=== PATIENT | female | born 1940 | race Caucasian/White ===

== ENCOUNTER → 2016-03-09 | Outpatient (CLI) | payer MEDICARE, BC | LOC: LAB 09:03 | DX: R30.0 Dysuria (principal); N76.0 Acute vaginitis | CPT/HCPCS: Q0111 ==

== ENCOUNTER → 2016-11-27 | Outpatient (CLI) | payer MEDICARE, BC | LOC: LAB 08:43 | DX: I10 Essential (primary) hypertension (principal); Z13.220 Encounter for screening for lipoid disorders; F41.1 Generalized anxiety disorder; Z00.00 Encounter for general adult medical examination without abnormal findings ==

== ENCOUNTER → 2016-12-03 | Outpatient (CLI) | payer MEDICARE, BC | LOC: LAB 09:29 | DX: R71.8 Other abnormality of red blood cells (principal); L65.9 Nonscarring hair loss, unspecified; I10 Essential (primary) hypertension; D72.821 Monocytosis (symptomatic) ==

== ENCOUNTER → 2016-12-11 | Outpatient (CLI) | payer MEDICARE, BC ==
[2016-12-11 09:22] LABS: PH-URINE 6.5 (5.0 - 8.0); URINE APPEARANCE CLEAR; URINE BILIRUBIN NEGATIVE (NEGATIVE); URINE BLOOD TRACE (NEGATIVE); URINE COLOR YELLOW; URINE GLUCOSE NEGATIVE (NEGATIVE); URINE KETONE NEGATIVE (NEGATIVE); URINE LEUKOCYTE ESTERASE NEGATIVE (NEGATIVE); URINE MUCUS PRESENT (NOT PRESENT); URINE NITRATE NEGATIVE (NEGATIVE); URINE PROTEIN(semi-quant) TRACE mg/dL (NEGATIVE); URINE UROBILINOGEN NORMAL (NORMAL)
== END ==
LOC: LAB 08:52
PROVIDERS: Nurse Practitioner Family
DX: R35.0 Frequency of micturition (principal); R31.1 Benign essential microscopic hematuria; R30.0 Dysuria

== ENCOUNTER → 2017-05-06 | Outpatient (CLI) | payer MEDICARE, BC | LOC: LAB 11:32 | DX: M79.1 Myalgia (principal); R20.2 Paresthesia of skin; M79.644 Pain in right finger(s); M47.812 Spondylosis without myelopathy or radiculopathy, cervical region; R93.7 Abnormal findings on diagnostic imaging of other parts of musculoskeletal system ==

== ENCOUNTER → 2017-07-31 | Outpatient (CLI) | payer MEDICARE, BC | LOC: RAD 08:45 | DX: M79.644 Pain in right finger(s) (principal) ==

== ENCOUNTER → 2017-12-02 | Outpatient (CLI) | payer MEDICARE, BC ==
[2017-12-02 11:06] LABS: ALBUMIN 4.4 g/dL (3.5-5.0); CALCIUM 9.3 mg/dL (8.4-10.2); POTASSIUM 3.8 mmol/L (3.6-5.0); TOTAL BILIRUBIN 0.4 mg/dL (0.2-1.3); TOTAL PROTEIN 7.5 g/dL (6.3-8.2)
[2017-12-02 11:10] LABS: HEMATOCRIT 39.4 % (37.0-47.0); HEMOGLOBIN 12.9 g/dL (12.5-16.0); MEAN CELL VOLUME 101 fl (78-100); MEAN CORPUSCULAR HEMOGLOBIN 33 pg (27-31); MEAN CORPUSCULAR HGB CONC 33 g/dL (33-37); MEAN PLATELET VOLUME 9.7 fl (7.4-10.4); PLATELET COUNT 482 K/mm3 (130-400); RED BLOOD COUNT 3.91 M/mm3 (4.10-5.30); WHITE BLOOD COUNT 5.4 K/mm3 (4.8-10.8)
[2017-12-02 11:58] LABS: LYMPHOCYTE 30 % (20-51); MONOCYTE 17 % (3-10); NEUTROPHILS 52 % (42-75)
== END ==
LOC: LAB 09:54
PROVIDERS: Internal Medicine
DX: D72.819 Decreased white blood cell count, unspecified (principal)

== ENCOUNTER → 2017-12-04 | Outpatient (CLI) | payer MEDICARE, BC | LOC: RAD 07:53 | DX: C92.10 Chronic myeloid leukemia, BCR/ABL-positive, not having achieved remission (principal); R10.12 Left upper quadrant pain ==

== ENCOUNTER → 2017-12-16 | Outpatient (CLI) | payer MEDICARE, BC | LOC: RAD 08:49 | DX: R10.12 Left upper quadrant pain (principal); R10.2 Pelvic and perineal pain; Z85.6 Personal history of leukemia | CPT/HCPCS: Q9967 ==

== ENCOUNTER → 2018-01-24 | Outpatient (CLI) | payer MEDICARE, BC | LOC: CARDREHAB 07:46 → CARDLAB 09:06 | DX: R07.9 Chest pain, unspecified (principal); R06.02 Shortness of breath; Z86.79 Personal history of other diseases of the circulatory system; Z82.49 Family history of ischemic heart disease and other diseases of the circulatory system | CPT/HCPCS: A9500 ==

== ENCOUNTER → 2018-01-30 | Outpatient (CLI) | payer MEDICARE, BC | LOC: RAD 16:39 | DX: I35.1 Nonrheumatic aortic (valve) insufficiency (principal); I51.89 Other ill-defined heart diseases ==

== ENCOUNTER → 2018-03-05 | Outpatient (CLI) | payer MEDICARE, BC ==
[2018-03-05 10:16] LABS: ALBUMIN 4.6 g/dL (3.5-5.0); CALCIUM 9.5 mg/dL (8.4-10.2); POTASSIUM 3.4 mmol/L (3.6-5.0); TOTAL BILIRUBIN 0.6 mg/dL (0.2-1.3); TOTAL PROTEIN 7.6 g/dL (6.3-8.2)
[2018-03-05 10:18] LABS: HEMATOCRIT 39.8 % (37.0-47.0); HEMOGLOBIN 13.1 g/dL (12.5-16.0); MEAN CELL VOLUME 100 fl (78-100); MEAN CORPUSCULAR HEMOGLOBIN 33 pg (27-31); MEAN CORPUSCULAR HGB CONC 33 g/dL (33-37); PLATELET COUNT 82 K/mm3 (130-400); RED BLOOD COUNT 3.97 M/mm3 (4.10-5.30); RED CELL DISTRIBUTION WIDTH 12.8 % (11.5-14.5); WHITE BLOOD COUNT 4.2 K/mm3 (4.8-10.8)
[2018-03-05 10:50] LABS: LYMPHOCYTE 34 % (20-51); MONOCYTE 36 % (3-10); NEUTROPHILS 25 % (42-75)
== END ==
LOC: LAB 09:51
PROVIDERS: Internal Medicine
DX: Z01.419 Encounter for gynecological examination (general) (routine) without abnormal findings (principal); C93.10 Chronic myelomonocytic leukemia not having achieved remission; E78.00 Pure hypercholesterolemia, unspecified; E55.9 Vitamin D deficiency, unspecified

== ENCOUNTER → 2018-04-30 | Outpatient (CLI) | payer MEDICARE, BC | LOC: RAD 10:07 | DX: M79.642 Pain in left hand (principal) ==

== ENCOUNTER → 2018-05-22 | Outpatient (CLI) | payer MEDICARE, BC | LOC: RAD 11:25 | DX: C93.10 Chronic myelomonocytic leukemia not having achieved remission (principal) ==

== ENCOUNTER → 2018-06-16 | Outpatient (CLI) | payer MEDICARE, BC ==
[2018-06-16 13:38] LABS: ALBUMIN 4.2 g/dL (3.5-5.0); CALCIUM 9.7 mg/dL (8.4-10.2); POTASSIUM 3.6 mmol/L (3.6-5.0); TOTAL BILIRUBIN 0.4 mg/dL (0.2-1.3)
[2018-06-16 13:48] LABS: HEMATOCRIT 36.3 % (37.0-47.0); HEMOGLOBIN 11.5 g/dL (12.5-16.0); MEAN CELL VOLUME 101 fl (78-100); MEAN CORPUSCULAR HEMOGLOBIN 32 pg (27-31); MEAN CORPUSCULAR HGB CONC 32 g/dL (33-37); MEAN PLATELET VOLUME 11.4 fl (7.4-10.4); PLATELET COUNT 109 K/mm3 (130-400); RED BLOOD COUNT 3.61 M/mm3 (4.10-5.30); RED CELL DISTRIBUTION WIDTH 13.2 % (11.5-14.5); WHITE BLOOD COUNT 5.1 K/mm3 (4.8-10.8)
[2018-06-16 16:10] LABS: LYMPHOCYTE 33 % (20-51); MONOCYTE 26 % (3-10); NEUTROPHILS 41 % (42-75)
== END ==
LOC: LAB 13:08
PROVIDERS: Family Medicine
DX: C93.10 Chronic myelomonocytic leukemia not having achieved remission (principal)

== ENCOUNTER → 2018-09-09 | Outpatient (CLI) | payer MEDICARE, BC ==
[2018-09-09 17:04] LABS: HEMATOCRIT 37.2 % (37.0-47.0); HEMOGLOBIN 11.8 g/dL (12.5-16.0); MEAN CELL VOLUME 99 fl (78-100); MEAN CORPUSCULAR HEMOGLOBIN 31 pg (27-31); MEAN CORPUSCULAR HGB CONC 32 g/dL (33-37); PLATELET COUNT 338 K/mm3 (130-400); RED BLOOD COUNT 3.77 M/mm3 (4.10-5.30); RED CELL DISTRIBUTION WIDTH 13.5 % (11.5-14.5); WHITE BLOOD COUNT 5.3 K/mm3 (4.8-10.8)
[2018-09-09 22:05] LABS: ALBUMIN 4.3 g/dL (3.4-4.8)
[2018-09-09 22:06] LABS: POTASSIUM 3.9 mmol/L (3.5-5.1)
[2018-09-09 22:07] LABS: CALCIUM 9.3 mg/dL (8.3-10.5)
[2018-09-09 22:08] LABS: TOTAL PROTEIN 6.5 g/dL (6.2-8.1)
[2018-09-09 22:10] LABS: TOTAL BILIRUBIN 0.3 mg/dL (0.2-1.2)
[2018-09-09 22:30] LABS: LYMPHOCYTE 27 % (20-51); MONOCYTE 32 % (3-10); NEUTROPHILS 40 % (42-75)
== END ==
LOC: LAB 16:21
PROVIDERS: Internal Medicine
DX: C93.10 Chronic myelomonocytic leukemia not having achieved remission (principal)

== ENCOUNTER → 2018-09-22 | Outpatient (CLI) | payer MEDICARE, BC | LOC: VAS 09:10 | DX: R55 Syncope and collapse (principal) ==

== ENCOUNTER → 2018-10-29 | Outpatient (CLI) | payer MEDICARE, BC | LOC: RAD 09:08 | DX: M79.644 Pain in right finger(s) (principal) ==

== ENCOUNTER → 2018-12-12 | Outpatient (CLI) | payer MEDICARE, BC ==
[2018-12-12 16:45] LABS: HEMATOCRIT 37.4 % (37.0-47.0); HEMOGLOBIN 12.3 g/dL (12.5-16.0); MEAN CELL VOLUME 97 fl (78-100); MEAN CORPUSCULAR HEMOGLOBIN 32 pg (27-31); MEAN CORPUSCULAR HGB CONC 33 g/dL (33-37); MEAN PLATELET VOLUME 10.6 fl (7.4-10.4); PLATELET COUNT 124 K/mm3 (130-400); RED BLOOD COUNT 3.87 M/mm3 (4.10-5.30); WHITE BLOOD COUNT 5.4 K/mm3 (4.8-10.8)
[2018-12-12 16:49] LABS: POTASSIUM 3.2 mmol/L (3.5-5.1)
[2018-12-12 16:50] LABS: CALCIUM 9.7 mg/dL (8.3-10.5)
[2018-12-12 16:51] LABS: TOTAL PROTEIN 7.3 g/dL (6.2-8.1)
[2018-12-12 16:53] LABS: TOTAL BILIRUBIN 0.3 mg/dL (0.2-1.2)
[2018-12-12 16:55] LABS: NEUTROPHILS 25 % (42-75)
[2018-12-12 16:56] LABS: LYMPHOCYTE 28 % (20-51); MONOCYTE 44 % (3-10)
== END ==
LOC: LAB 16:16
PROVIDERS: Internal Medicine
DX: C93.10 Chronic myelomonocytic leukemia not having achieved remission (principal)

== ENCOUNTER → 2019-04-06 | Outpatient (CLI) | payer MEDICARE, BC ==
[2019-04-06 16:13] LABS: MEAN CELL VOLUME 103 fl (78-100); MEAN CORPUSCULAR HEMOGLOBIN 33 pg (27-31); MEAN CORPUSCULAR HGB CONC 32 g/dL (33-37); MEAN PLATELET VOLUME 10.4 fl (7.4-10.4); PLATELET COUNT 204 K/mm3 (130-400); RED BLOOD COUNT 3.68 M/mm3 (4.10-5.30); WHITE BLOOD COUNT 5.7 K/mm3 (4.8-10.8)
[2019-04-06 16:22] LABS: ALBUMIN 4.4 g/dL (3.4-4.8)
[2019-04-06 16:23] LABS: POTASSIUM 3.8 mmol/L (3.5-5.1)
[2019-04-06 16:24] LABS: CALCIUM 9.3 mg/dL (8.3-10.5)
[2019-04-06 16:25] LABS: TOTAL PROTEIN 7.4 g/dL (6.2-8.1)
[2019-04-06 16:27] LABS: TOTAL BILIRUBIN 0.2 mg/dL (0.2-1.2)
[2019-04-06 16:28] LABS: LYMPHOCYTE 27 % (20-51); MONOCYTE 34 % (3-10); NEUTROPHILS 30 % (42-75)
== END ==
LOC: LAB 16:01
PROVIDERS: Internal Medicine
DX: C93.10 Chronic myelomonocytic leukemia not having achieved remission (principal)

== ENCOUNTER → 2019-07-08 | Outpatient (CLI) | payer MEDICARE, BC ==
[2019-07-08 15:56] LABS: HEMATOCRIT 38.1 % (37.0-47.0); HEMOGLOBIN 12.3 g/dL (12.5-16.0); MEAN CELL VOLUME 101 fl (78-100); MEAN CORPUSCULAR HEMOGLOBIN 33 pg (27-31); MEAN CORPUSCULAR HGB CONC 32 g/dL (33-37); MEAN PLATELET VOLUME 11.1 fl (7.4-10.4); PLATELET COUNT 134 K/mm3 (130-400); RED BLOOD COUNT 3.76 M/mm3 (4.10-5.30); RED CELL DISTRIBUTION WIDTH 13.1 % (11.5-14.5); WHITE BLOOD COUNT 4.8 K/mm3 (4.8-10.8)
[2019-07-08 16:24] LABS: ALBUMIN 4.5 g/dL (3.4-4.8); POTASSIUM 3.6 mmol/L (3.5-5.1)
[2019-07-08 16:25] LABS: CALCIUM 9.6 mg/dL (8.3-10.5)
[2019-07-08 16:26] LABS: TOTAL PROTEIN 7.1 g/dL (6.2-8.1)
[2019-07-08 16:28] LABS: TOTAL BILIRUBIN 0.4 mg/dL (0.2-1.2)
[2019-07-08 18:19] LABS: LYMPHOCYTE 37 % (20-51); MONOCYTE 38 % (3-10); NEUTROPHILS 25 % (42-75)
== END ==
LOC: LAB 15:32
PROVIDERS: Internal Medicine
DX: C93.10 Chronic myelomonocytic leukemia not having achieved remission (principal)

== ENCOUNTER → 2019-11-11 | Outpatient (CLI) | payer MEDICARE, BC ==
[2019-11-11 15:51] LABS: HEMATOCRIT 36.5 % (37.0-47.0); MEAN CELL VOLUME 101 fl (78-100); MEAN CORPUSCULAR HEMOGLOBIN 33 pg (27-31); MEAN CORPUSCULAR HGB CONC 33 g/dL (33-37); MEAN PLATELET VOLUME 10.3 fl (7.4-10.4); PLATELET COUNT 170 K/mm3 (130-400); RED BLOOD COUNT 3.63 M/mm3 (4.10-5.30); RED CELL DISTRIBUTION WIDTH 13.1 % (11.5-14.5); WHITE BLOOD COUNT 4.9 K/mm3 (4.8-10.8)
[2019-11-11 16:02] LABS: ALBUMIN 4.6 g/dL (3.4-4.8); POTASSIUM 3.4 mmol/L (3.5-5.1)
[2019-11-11 16:03] LABS: CALCIUM 9.5 mg/dL (8.3-10.5)
[2019-11-11 16:04] LABS: TOTAL PROTEIN 7.3 g/dL (6.2-8.1)
[2019-11-11 16:06] LABS: TOTAL BILIRUBIN 0.3 mg/dL (0.2-1.2)
[2019-11-11 16:09] LABS: LYMPHOCYTE 33 % (20-51); MONOCYTE 42 % (3-10); NEUTROPHILS 25 % (42-75)
== END ==
LOC: LAB 15:41
PROVIDERS: Internal Medicine
DX: D72.819 Decreased white blood cell count, unspecified (principal)

== ENCOUNTER → 2020-03-16 | Outpatient (CLI) | payer MEDICARE, BC ==
[2020-03-16 16:14] LABS: HEMATOCRIT 41.6 % (37.0-47.0); MEAN CELL VOLUME 104 fl (78-100); MEAN CORPUSCULAR HEMOGLOBIN 32 pg (27-31); MEAN CORPUSCULAR HGB CONC 31 g/dL (33-37); MEAN PLATELET VOLUME 10.9 fl (7.4-10.4); PLATELET COUNT 292 K/mm3 (130-400); RED BLOOD COUNT 4.02 M/mm3 (4.10-5.30); RED CELL DISTRIBUTION WIDTH 13.1 % (11.5-14.5); WHITE BLOOD COUNT 5.3 K/mm3 (4.8-10.8)
[2020-03-16 16:18] LABS: ALBUMIN 4.5 g/dL (3.4-4.8); POTASSIUM 4.3 mmol/L (3.5-5.1)
[2020-03-16 16:19] LABS: CALCIUM 9.6 mg/dL (8.3-10.5)
[2020-03-16 16:22] LABS: TOTAL BILIRUBIN 0.4 mg/dL (0.2-1.2)
[2020-03-16 16:26] LABS: BAND 2 % (0-10); LYMPHOCYTE 29 % (20-51); NEUTROPHILS 30 % (42-75)
[2020-03-16 16:27] LABS: MONOCYTE 39 % (3-10); STOMATOCYTE 1+
== END ==
LOC: LAB 15:58
PROVIDERS: Internal Medicine
DX: D72.819 Decreased white blood cell count, unspecified (principal)

== ENCOUNTER → 2020-03-29 | Outpatient (CLI) | payer MEDICARE, BC | LOC: LAB 10:15 | DX: U07.1 COVID-19 (principal) ==

== ENCOUNTER → 2020-04-20 | Outpatient (CLI) | payer MEDICARE, BC ==
[2020-04-02 16:43] VITALS: BP 147/62
[~2020-04-20] MED LIST: FLONASE ALLERG9.9 ML NS; HCTZ 25MG25 MG PO; NYSTATIN1 EAC2 MC; SERTRALINE HYDR25 MG PO
[2020-04-21 01:35] LABS: ALBUMIN 4.3 g/dL (3.4-4.8); CALCIUM 9.8 mg/dL (8.3-10.5); POTASSIUM 4.1 mmol/L (3.5-5.1); TOTAL BILIRUBIN 0.5 mg/dL (0.2-1.2); TOTAL PROTEIN 7.5 g/dL (6.2-8.1)
[2020-04-21 06:23] LABS: HEMOGLOBIN 10.7 g/dL (12.5-16.0); MEAN CELL VOLUME 103 fl (78-100); MEAN CORPUSCULAR HEMOGLOBIN 32 pg (27-31); MEAN CORPUSCULAR HGB CONC 31 g/dL (33-37); MEAN PLATELET VOLUME 10.3 fl (7.4-10.4); NEUTROPHILS 35 % (42-75); PLATELET COUNT 299 K/mm3 (130-400); RED BLOOD COUNT 3.39 M/mm3 (4.10-5.30); RED CELL DISTRIBUTION WIDTH 13.4 % (11.5-14.5); WHITE BLOOD COUNT 6.3 K/mm3 (4.8-10.8)
[2020-04-21 06:24] LABS: LYMPHOCYTE 26 % (20-51); MONOCYTE 38 % (3-10); NUCLEATED RED BLOOD CELL 2 (0-6)
== END ==
LOC: LAB 11:59
PROVIDERS: Family Medicine
DX: J95.811 Postprocedural pneumothorax (principal); Z86.16 Personal history of COVID-19; Z95.0 Presence of cardiac pacemaker

== ENCOUNTER 2020-06-13 14:30 | Outpatient (RCR) | payer MEDICARE, BC ==
[2020-04-02 16:43] VITALS: BP 147/62
[~2020-06-13 14:30] MED LIST changes: -FLONASE ALLERG9.9 ML NS; -HCTZ 25MG25 MG PO; -SERTRALINE HYDR25 MG PO
== END 2020-07-18 17:00 | disposition home or self-care (01) ==
LOC: PT 14:30
DX: R53.1 Weakness (principal)

== ENCOUNTER → 2020-07-20 | Outpatient (CLI) | payer MEDICARE, BC ==
[2020-04-02 16:43] VITALS: BP 147/62
[~2020-07-20] MED LIST changes: +FLONASE ALLERG9.9 ML NS; +HCTZ 25MG25 MG PO; +SERTRALINE HYDR25 MG PO
[2020-07-20 15:35] LABS: BASO # 0.06 (0.02-0.10); EOS # 0.01 (0.04-0.40); EOS % 0.2 % (1.0-5.0); HEMATOCRIT 37.4 % (37.0-47.0); HEMOGLOBIN 12.2 g/dL (12.5-16.0); LYMPH# 1.51 (1.50-4.00); MEAN CELL VOLUME 101 fl (78-100); MEAN CORPUSCULAR HEMOGLOBIN 33 pg (27-31); MEAN CORPUSCULAR HGB CONC 33 g/dL (33-37); MONO # 2.07 (0.20-0.80); NEU # 2.82 (1.40-6.50); PLATELET COUNT 280 K/mm3 (130-400); RED BLOOD COUNT 3.72 M/mm3 (4.10-5.30); RED CELL DISTRIBUTION WIDTH 13.1 % (11.5-14.5); WHITE BLOOD COUNT 6.5 K/mm3 (4.8-10.8)
[2020-07-20 15:47] LABS: ALBUMIN 4.3 g/dL (3.4-4.8); POTASSIUM 3.6 mmol/L (3.5-5.1)
[2020-07-20 15:48] LABS: CALCIUM 9.5 mg/dL (8.3-10.5)
[2020-07-20 15:50] LABS: TOTAL PROTEIN 6.9 g/dL (6.2-8.1)
[2020-07-20 15:51] LABS: TOTAL BILIRUBIN 0.3 mg/dL (0.2-1.2)
[2020-07-20 17:26] LABS: LYMPHOCYTE 25 % (20-51); MONOCYTE 32 % (3-10); NEUTROPHILS 43 % (42-75)
== END ==
LOC: LAB 15:24
PROVIDERS: Internal Medicine
DX: D72.819 Decreased white blood cell count, unspecified (principal)

== ENCOUNTER → 2020-09-22 | Outpatient (CLI) | payer MEDICARE, BC | LOC: LAB 14:47 | DX: Z20.822 Contact with and (suspected) exposure to COVID-19 (principal) ==

== ENCOUNTER 2020-10-31 13:16 | Emergency (ER) | payer MEDICARE, BC ==
[~2020-10-31 13:16] MED LIST changes: -FLONASE ALLERG9.9 ML NS; -HCTZ 25MG25 MG PO; -SERTRALINE HYDR25 MG PO
[2020-10-31] MEDS ORDERED: HCTZ 25MG25 MG PO (13:34)
[2020-10-31 14:07] VITALS: BP 166/72
== END 2020-10-31 14:05 | disposition home or self-care (01) ==
LOC: ED 13:16
DX: U07.1 COVID-19 (principal); M54.2 Cervicalgia; I44.1 Atrioventricular block, second degree

== ENCOUNTER → 2020-11-30 | Outpatient (CLI) | payer MEDICARE, BC ==
[~2020-11-30] MED LIST changes: +FLONASE ALLERG9.9 ML NS; +HCTZ 25MG25 MG PO; +SERTRALINE HYDR25 MG PO
[2020-11-30 16:25] LABS: BASO # 0.02 K/mm3 (0.02-0.10); EOS # 0.01 K/mm3 (0.04-0.40); EOS % 0.2 % (1.0-5.0); HEMATOCRIT 35.5 % (37.0-47.0); HEMOGLOBIN 11.5 g/dL (12.5-16.0); LYMPH# 1.47 K/mm3 (1.50-4.00); MEAN CELL VOLUME 102 fl (78-100); MEAN CORPUSCULAR HEMOGLOBIN 33 pg (27-31); MEAN CORPUSCULAR HGB CONC 32 g/dL (33-37); MEAN PLATELET VOLUME 11.4 fl (7.4-10.4); MONO # 1.61 K/mm3 (0.20-0.80); NEU # 1.47 K/mm3 (1.40-6.50); PLATELET COUNT 85 K/mm3 (130-400); RED BLOOD COUNT 3.47 M/mm3 (4.10-5.30); WHITE BLOOD COUNT 4.6 K/mm3 (4.8-10.8)
[2020-11-30 16:32] LABS: ALBUMIN 4.1 g/dL (3.4-4.8); POTASSIUM 3.5 mmol/L (3.5-5.1)
[2020-11-30 16:33] LABS: CALCIUM 9.5 mg/dL (8.3-10.5)
[2020-11-30 16:35] LABS: TOTAL PROTEIN 6.7 g/dL (6.2-8.1)
[2020-11-30 16:36] LABS: TOTAL BILIRUBIN 0.3 mg/dL (0.2-1.2)
== END ==
LOC: LAB 15:59
PROVIDERS: Internal Medicine
DX: C93.10 Chronic myelomonocytic leukemia not having achieved remission (principal)

== ENCOUNTER 2020-12-08 12:43 | Emergency (ER) | payer MEDICARE, BC ==
[~2020-12-08 12:43] MED LIST changes: -FLONASE ALLERG9.9 ML NS; -SERTRALINE HYDR25 MG PO
[2020-12-08 13:02] VITALS: BP 167/71
[2020-12-08] MEDS ORDERED: SERTRALINE HYDR25 MG PO (13:04)
[2020-12-08 13:40] LABS: HEMATOCRIT 40.5 % (37.0-47.0); HEMOGLOBIN 13.2 g/dL (12.5-16.0); MEAN CELL VOLUME 102 fl (78-100); MEAN CORPUSCULAR HEMOGLOBIN 33 pg (27-31); MEAN CORPUSCULAR HGB CONC 33 g/dL (33-37); PLATELET COUNT 119 K/mm3 (130-400); RED BLOOD COUNT 3.99 M/mm3 (4.10-5.30); RED CELL DISTRIBUTION WIDTH 13.1 % (11.5-14.5); WHITE BLOOD COUNT 6.6 K/mm3 (4.8-10.8)
[2020-12-08 13:47] LABS: URINE APPEARANCE CLEAR; URINE BILIRUBIN NEGATIVE (NEGATIVE); URINE BLOOD NEGATIVE (NEGATIVE); URINE COLOR YELLOW; URINE GLUCOSE NEGATIVE (NEGATIVE); URINE KETONE NEGATIVE (NEGATIVE); URINE LEUKOCYTE ESTERASE NEGATIVE (NEGATIVE); URINE NITRATE NEGATIVE (NEGATIVE); URINE PROTEIN(semi-quant) NEGATIVE (NEGATIVE); URINE UROBILINOGEN NORMAL (NORMAL); URINE WBC 0-1 /hpf (0-3)
[2020-12-08 14:06] LABS: BAND 2 % (0-10); LYMPHOCYTE 23 % (20-51); MONOCYTE 20 % (3-10); MYELOCYTE 9 % (0-0); NEUTROPHILS 44 % (42-75)
[2020-12-08 14:13] LABS: ALBUMIN 4.6 g/dL (3.4-4.8); POTASSIUM 3.6 mmol/L (3.5-5.1)
[2020-12-08 14:14] LABS: CALCIUM 10.2 mg/dL (8.3-10.5)
[2020-12-08 14:16] LABS: TOTAL PROTEIN 7.3 g/dL (6.2-8.1)
[2020-12-08 14:18] LABS: TOTAL BILIRUBIN 0.4 mg/dL (0.2-1.2)
[2020-12-08] MEDS ORDERED: FLONASE ALLERG9.9 ML NS (14:40)
== END 2020-12-08 14:52 | disposition home or self-care (01) ==
LOC: ED 12:43
PROVIDERS: Nurse Practitioner
DX: J30.9 Allergic rhinitis, unspecified (principal); M54.2 Cervicalgia

== ENCOUNTER → 2021-01-11 | Outpatient (CLI) | payer MEDICARE, BC ==
[~2021-01-11] MED LIST changes: +FLONASE ALLERG9.9 ML NS; +SERTRALINE HYDR25 MG PO
[2021-01-11 15:35] LABS: MEAN CELL VOLUME 100 fl (78-100); MEAN CORPUSCULAR HEMOGLOBIN 32 pg (27-31); MEAN CORPUSCULAR HGB CONC 32 g/dL (33-37); MEAN PLATELET VOLUME 10.1 fl (7.4-10.4); PLATELET COUNT 89 K/mm3 (130-400); RED BLOOD COUNT 3.72 M/mm3 (4.10-5.30); RED CELL DISTRIBUTION WIDTH 12.5 % (11.5-14.5); WHITE BLOOD COUNT 5.3 K/mm3 (4.8-10.8)
[2021-01-11 16:54] LABS: LYMPHOCYTE 27 % (20-51); MONOCYTE 31 % (3-10); NEUTROPHILS 40 % (42-75)
== END ==
LOC: LAB 15:13
PROVIDERS: Internal Medicine
DX: C93.10 Chronic myelomonocytic leukemia not having achieved remission (principal)

== ENCOUNTER → 2021-02-22 | Outpatient (CLI) | payer MEDICARE, BC ==
[2021-02-22 15:25] LABS: HEMATOCRIT 37.4 % (37.0-47.0); MEAN CELL VOLUME 101 fl (78-100); MEAN CORPUSCULAR HEMOGLOBIN 33 pg (27-31); MEAN CORPUSCULAR HGB CONC 32 g/dL (33-37); MEAN PLATELET VOLUME 9.6 fl (7.4-10.4); PLATELET COUNT 187 K/mm3 (130-400); RED BLOOD COUNT 3.69 M/mm3 (4.10-5.30); RED CELL DISTRIBUTION WIDTH 13.3 % (11.5-14.5); WHITE BLOOD COUNT 5.1 K/mm3 (4.8-10.8)
[2021-02-22 15:35] LABS: ALBUMIN 4.5 g/dL (3.4-4.8)
[2021-02-22 15:36] LABS: POTASSIUM 3.5 mmol/L (3.5-5.1)
[2021-02-22 15:37] LABS: CALCIUM 10.1 mg/dL (8.3-10.5)
[2021-02-22 15:38] LABS: TOTAL PROTEIN 7.4 g/dL (6.2-8.1)
[2021-02-22 15:40] LABS: TOTAL BILIRUBIN 0.5 mg/dL (0.2-1.2)
[2021-02-22 17:52] LABS: LYMPHOCYTE 52 % (20-51); MONOCYTE 15 % (3-10); NEUTROPHILS 32 % (42-75)
== END ==
LOC: LAB 15:14
PROVIDERS: Internal Medicine
DX: C92.10 Chronic myeloid leukemia, BCR/ABL-positive, not having achieved remission (principal)

== ENCOUNTER → 2021-05-01 | Outpatient (CLI) | payer MEDICARE, BC ==
[2021-05-01 12:23] LABS: BASO # 0.02 K/mm3 (0.02-0.10); EOS # 0.01 K/mm3 (0.04-0.40); EOS % 0.2 % (1.0-5.0); HEMATOCRIT 39.9 % (37.0-47.0); LYMPH# 1.23 K/mm3 (1.50-4.00); MEAN CELL VOLUME 101 fl (78-100); MEAN CORPUSCULAR HEMOGLOBIN 33 pg (27-31); MEAN CORPUSCULAR HGB CONC 33 g/dL (33-37); MEAN PLATELET VOLUME 11.1 fl (7.4-10.4); NEU # 2.07 K/mm3 (1.40-6.50); PLATELET COUNT 84 K/mm3 (130-400); RED BLOOD COUNT 3.94 M/mm3 (4.10-5.30); WHITE BLOOD COUNT 4.9 K/mm3 (4.8-10.8)
[2021-05-01 12:28] LABS: ALBUMIN 4.6 g/dL (3.4-4.8); POTASSIUM 4.3 mmol/L (3.5-5.1)
[2021-05-01 12:31] LABS: TOTAL PROTEIN 7.5 g/dL (6.2-8.1)
[2021-05-01 12:33] LABS: TOTAL BILIRUBIN 0.5 mg/dL (0.2-1.2)
== END ==
LOC: LAB 11:39
PROVIDERS: Family Medicine
DX: C93.10 Chronic myelomonocytic leukemia not having achieved remission (principal); Z00.00 Encounter for general adult medical examination without abnormal findings; E78.5 Hyperlipidemia, unspecified; J30.9 Allergic rhinitis, unspecified; F41.9 Anxiety disorder, unspecified; I10 Essential (primary) hypertension; G56.00 Carpal tunnel syndrome, unspecified upper limb; F32.9 Major depressive disorder, single episode, unspecified; Z86.59 Personal history of other mental and behavioral disorders; E78.00 Pure hypercholesterolemia, unspecified; N39.46 Mixed incontinence; E55.9 Vitamin D deficiency, unspecified

== ENCOUNTER → 2021-05-25 | Outpatient (CLI) | payer MEDICARE, BC ==
[2021-05-25 14:25] LABS: HEMATOCRIT 37.7 % (37.0-47.0); HEMOGLOBIN 12.4 g/dL (12.5-16.0); MEAN CELL VOLUME 100 fl (78-100); MEAN CORPUSCULAR HEMOGLOBIN 33 pg (27-31); MEAN CORPUSCULAR HGB CONC 33 g/dL (33-37); MEAN PLATELET VOLUME 10.5 fl (7.4-10.4); PLATELET COUNT 273 K/mm3 (130-400); RED BLOOD COUNT 3.79 M/mm3 (4.10-5.30); RED CELL DISTRIBUTION WIDTH 12.4 % (11.5-14.5); WHITE BLOOD COUNT 10.3 K/mm3 (4.8-10.8)
[2021-05-25 14:34] LABS: ALBUMIN 4.3 g/dL (3.4-4.8); BASO # 0.02 K/mm3 (0.02-0.10); LYMPH# 1.69 K/mm3 (1.50-4.00); NEU # 5.27 K/mm3 (1.40-6.50); POTASSIUM 3.1 mmol/L (3.5-5.1)
[2021-05-25 14:35] LABS: CALCIUM 9.8 mg/dL (8.3-10.5)
[2021-05-25 14:37] LABS: TOTAL PROTEIN 7.2 g/dL (6.2-8.1)
[2021-05-25 14:38] LABS: TOTAL BILIRUBIN 0.4 mg/dL (0.2-1.2)
[2021-05-25 15:02] LABS: LYMPHOCYTE 19 % (20-51); NEUTROPHILS 57 % (42-75)
[2021-05-25 15:03] LABS: MONOCYTE 24 % (3-10)
[2021-05-25 15:05] LABS: HYPOCHROMIA 1+
== END ==
LOC: LAB 14:10
PROVIDERS: Internal Medicine
DX: C93.10 Chronic myelomonocytic leukemia not having achieved remission (principal)

== ENCOUNTER → 2021-08-29 | Outpatient (CLI) | payer MEDICARE, BC ==
[2021-08-29 16:42] LABS: HEMATOCRIT 33.8 % (37.0-47.0); MEAN CELL VOLUME 100 fl (78-100); MEAN CORPUSCULAR HEMOGLOBIN 33 pg (27-31); MEAN CORPUSCULAR HGB CONC 33 g/dL (33-37); MEAN PLATELET VOLUME 9.9 fl (7.4-10.4); PLATELET COUNT 336 K/mm3 (130-400); RED BLOOD COUNT 3.37 M/mm3 (4.10-5.30); RED CELL DISTRIBUTION WIDTH 13.3 % (11.5-14.5)
[2021-08-29 17:14] LABS: ALBUMIN 4.2 g/dL (3.4-4.8)
[2021-08-29 17:15] LABS: CALCIUM 9.6 mg/dL (8.3-10.5)
[2021-08-29 17:16] LABS: TOTAL PROTEIN 6.7 g/dL (6.2-8.1)
[2021-08-29 17:18] LABS: TOTAL BILIRUBIN 0.5 mg/dL (0.2-1.2)
[2021-08-29 17:29] LABS: LYMPHOCYTE 23 % (20-51); MONOCYTE 23 % (3-10); NEUTROPHILS 52 % (42-75)
== END ==
LOC: LAB 16:22
PROVIDERS: Internal Medicine
DX: C93.10 Chronic myelomonocytic leukemia not having achieved remission (principal)

== ENCOUNTER → 2021-09-27 | Outpatient (CLI) | payer MEDICARE, BC | LOC: RAD 17:02 | DX: M51.36 Other intervertebral disc degeneration, lumbar region (principal); M41.26 Other idiopathic scoliosis, lumbar region ==

== ENCOUNTER → 2022-01-30 | Outpatient (CLI) | payer MEDICARE, BC ==
[2022-01-30 15:55] LABS: HEMATOCRIT 32.7 % (37.0-47.0); HEMOGLOBIN 10.4 g/dL (12.5-16.0); MEAN PLATELET VOLUME 10.4 fl (7.4-10.4); RED BLOOD COUNT 3.22 M/mm3 (4.10-5.30); RED CELL DISTRIBUTION WIDTH 13.4 % (11.5-14.5); WHITE BLOOD COUNT 6.2 K/mm3 (4.8-10.8)
== END ==
LOC: LAB 15:37
PROVIDERS: Internal Medicine
DX: Z01.89 Encounter for other specified special examinations (principal)

== ENCOUNTER → 2022-01-31 | Outpatient (CLI) | payer MEDICARE, BC | LOC: RAD 01-03 11:30 | DX: M79.645 Pain in left finger(s) (principal) ==

== ENCOUNTER → 2022-03-14 | Outpatient (CLI) | payer MEDICARE, BC ==
[2022-03-14 13:17] LABS: HEMATOCRIT 37.1 % (37.0-47.0); MEAN CELL VOLUME 100 fl (78-100); MEAN CORPUSCULAR HEMOGLOBIN 32 pg (27-31); MEAN CORPUSCULAR HGB CONC 32 g/dL (33-37); MEAN PLATELET VOLUME 10.5 fl (7.4-10.4); PLATELET COUNT 332 K/mm3 (130-400); RED BLOOD COUNT 3.72 M/mm3 (4.10-5.30); RED CELL DISTRIBUTION WIDTH 13.4 % (11.5-14.5); WHITE BLOOD COUNT 4.9 K/mm3 (4.8-10.8)
[2022-03-14 13:30] LABS: ALBUMIN 4.5 g/dL (3.4-4.8); POTASSIUM 3.5 mmol/L (3.5-5.1)
[2022-03-14 13:31] LABS: CALCIUM 9.7 mg/dL (8.3-10.5)
[2022-03-14 13:32] LABS: TOTAL PROTEIN 7.3 g/dL (6.2-8.1)
[2022-03-14 13:34] LABS: TOTAL BILIRUBIN 0.4 mg/dL (0.2-1.2)
[2022-03-14 15:25] LABS: LYMPHOCYTE 36 % (20-51); MONOCYTE 28 % (3-10); NEUTROPHILS 36 % (42-75)
[2022-03-14 15:27] LABS: OVALOCYTES 1+
== END ==
LOC: LAB 13:02
PROVIDERS: Internal Medicine
DX: C93.10 Chronic myelomonocytic leukemia not having achieved remission (principal)

== ENCOUNTER → 2023-05-10 | Outpatient (CLI) | payer MEDICARE, BC ==
[~2023-05-10] MED LIST changes: +ATORVASTATIN CA40 MG PO; +CEFIXIME400 MG PO; +LYMEPAK100 MG PO; +OCUFLOX OPHTH DR5 ML OT
[2023-05-10 16:40] LABS: HEMATOCRIT 40.2 % (37.0-47.0); HEMOGLOBIN 13.1 g/dL (12.5-16.0); MEAN CELL VOLUME 98 fl (78-100); MEAN CORPUSCULAR HEMOGLOBIN 32 pg (27-31); MEAN CORPUSCULAR HGB CONC 33 g/dL (33-37); MEAN PLATELET VOLUME 10.7 fl (7.4-10.4); PLATELET COUNT 245 K/mm3 (130-400); RED CELL DISTRIBUTION WIDTH 13.1 % (11.5-14.5); WHITE BLOOD COUNT 6.7 K/mm3 (4.8-10.8)
[2023-05-10 16:53] LABS: ALBUMIN 4.5 g/dL (3.4-4.8)
[2023-05-10 16:55] LABS: CALCIUM 9.9 mg/dL (8.3-10.5)
[2023-05-10 16:56] LABS: TOTAL PROTEIN 7.6 g/dL (6.2-8.1)
[2023-05-10 16:58] LABS: TOTAL BILIRUBIN 0.4 mg/dL (0.2-1.2)
[2023-05-10 18:10] LABS: LYMPHOCYTE 27 % (20-51); MONOCYTE 30 % (3-10); NEUTROPHILS 43 % (42-75)
== END ==
LOC: LAB 15:38
PROVIDERS: Nurse Practitioner Family
DX: C93.10 Chronic myelomonocytic leukemia not having achieved remission (principal)

== ENCOUNTER → 2023-07-04 | Outpatient (CLI) | payer MEDICARE, BC ==
[2023-07-04 14:51] LABS: ALBUMIN 4.2 g/dL (3.4-4.8)
[2023-07-04 14:53] LABS: CALCIUM 9.6 mg/dL (8.3-10.5)
[2023-07-04 14:54] LABS: TOTAL PROTEIN 6.8 g/dL (6.2-8.1)
[2023-07-04 14:56] LABS: TOTAL BILIRUBIN 0.3 mg/dL (0.2-1.2)
== END ==
LOC: LAB 14:09
PROVIDERS: Internal Medicine
DX: C93.10 Chronic myelomonocytic leukemia not having achieved remission (principal); C34.12 Malignant neoplasm of upper lobe, left bronchus or lung

== ENCOUNTER → 2023-10-04 | Outpatient (CLI) | payer MEDICARE, BC ==
[2023-10-04 15:59] LABS: ALBUMIN 4.4 g/dL (3.4-4.8)
[2023-10-04 16:00] LABS: CALCIUM 9.7 mg/dL (8.3-10.5)
[2023-10-04 16:03] LABS: TOTAL BILIRUBIN 0.3 mg/dL (0.2-1.2)
[2023-10-04 16:07] LABS: HEMATOCRIT 33.9 % (37.0-47.0); MEAN CELL VOLUME 100 fl (78-100); MEAN CORPUSCULAR HEMOGLOBIN 32 pg (27-31); MEAN CORPUSCULAR HGB CONC 32 g/dL (33-37); MEAN PLATELET VOLUME 10.9 fl (7.4-10.4); PLATELET COUNT 212 K/mm3 (130-400); RED BLOOD COUNT 3.39 M/mm3 (4.10-5.30); RED CELL DISTRIBUTION WIDTH 12.9 % (11.5-14.5); WHITE BLOOD COUNT 4.7 K/mm3 (4.8-10.8)
[2023-10-04 16:35] LABS: LYMPHOCYTE 22 % (20-51); MONOCYTE 43 % (3-10); NEUTROPHILS 34 % (42-75)
[2023-10-04 16:36] LABS: HYPOCHROMIA 1+; OVALOCYTES 1+; SCHISTOCYTES 1+
== END ==
LOC: LAB 15:36
PROVIDERS: Nurse Practitioner Family
DX: C93.10 Chronic myelomonocytic leukemia not having achieved remission (principal); C34.12 Malignant neoplasm of upper lobe, left bronchus or lung

== ENCOUNTER → 2023-12-12 | Outpatient (CLI) | payer MEDICARE, BC | LOC: LAB 15:23 | DX: C34.12 Malignant neoplasm of upper lobe, left bronchus or lung (principal) ==

== ENCOUNTER → 2024-02-03 | Outpatient (CLI) | payer MEDICARE, BC ==
[2024-02-03 13:13] LABS: HEMATOCRIT 37.2 % (37.0-47.0); HEMOGLOBIN 11.9 g/dL (12.5-16.0); MEAN CELL VOLUME 102 fl (78-100); MEAN CORPUSCULAR HEMOGLOBIN 33 pg (27-31); MEAN CORPUSCULAR HGB CONC 32 g/dL (33-37); MEAN PLATELET VOLUME 10.1 fl (7.4-10.4); PLATELET COUNT 177 K/mm3 (130-400); RED BLOOD COUNT 3.66 M/mm3 (4.10-5.30); RED CELL DISTRIBUTION WIDTH 13.3 % (11.5-14.5); WHITE BLOOD COUNT 6.7 K/mm3 (4.8-10.8)
[2024-02-03 13:19] LABS: ALBUMIN 4.6 g/dL (3.4-4.8)
[2024-02-03 13:20] LABS: CALCIUM 10.1 mg/dL (8.3-10.5)
[2024-02-03 13:21] LABS: TOTAL PROTEIN 7.5 g/dL (6.2-8.1)
[2024-02-03 13:23] LABS: TOTAL BILIRUBIN 0.5 mg/dL (0.2-1.2)
[2024-02-03 13:30] LABS: LYMPHOCYTE 10 % (20-51); MONOCYTE 33 % (3-10); NEUTROPHILS 55 % (42-75)
== END ==
LOC: LAB 01-31 14:45
PROVIDERS: Nurse Practitioner Family
DX: Z85.118 Personal history of other malignant neoplasm of bronchus and lung (principal)

== ENCOUNTER → 2024-02-04 | Outpatient (CLI) | payer MEDICARE, BC ==
[~2024-02-04] MED LIST changes: +Iohexol 300 - 100 ML VIAL IV ONE
== END ==
LOC: RAD 09:49
DX: C34.12 Malignant neoplasm of upper lobe, left bronchus or lung (principal); C93.10 Chronic myelomonocytic leukemia not having achieved remission; E27.9 Disorder of adrenal gland, unspecified
CPT/HCPCS: Q9967